=== PATIENT | female | born 1955 | race Caucasian/White ===

== ENCOUNTER 2019-08-08 08:22 | Inpatient (IN) ==
[2019-08-08] MEDS ORDERED: CeFAZolin Syr 2,000MG/20 ML 2,000 MG/20 ML SYRINGE IVPB ONE (08:59)
[2019-08-08] MEDS ORDERED: Ringers Solution, Lactated 1,000 ML IVC SCH ×2 (09:00→09:15)
[2019-08-08] MEDS ORDERED: Ondansetron 4 MG/2 ML VIAL IVP ONE (09:07)
[2019-08-08] MEDS ORDERED: *HR* HYDROmorphone (PF) 1 MG/ML SYRINGE IVP PRN (09:07)
[2019-08-08] MEDS ORDERED: *HR* OxyCODONE Immed Rel 5 MG TABLET PO PRN (09:07)
[2019-08-08] MEDS ORDERED: *HR* Midazolam HCl 2 MG/2 ML VIAL ONE ×2 (09:23→15:47)
[2019-08-08] MEDS ORDERED: *HR* FentaNYL (PF) 100 MCG/2 ML VIAL ONE ×3 (09:23→15:16)
[2019-08-08] MEDS ORDERED: Ondansetron 4 MG/2 ML VIAL ONE (09:23)
[2019-08-08] MEDS ORDERED: *HR* Succinylcholine 200 MG/10 ML VIAL IVP ONE (09:23)
[2019-08-08] MEDS ORDERED: Neostigmine Methylsulfate 3 MG/3 ML SYRINGE ONE (09:23)
[2019-08-08] MEDS ORDERED: Dexamethasone 4 MG/ML VIAL ONE (09:23)
[2019-08-08] MEDS ORDERED: *HR* Rocuronium Bromide 50 MG/5 ML VIAL ONE ×5 (09:23→15:46)
[2019-08-08] MEDS ORDERED: Lidocaine -MPF 2% 2 ML VIAL ONE ×2 (09:23→10:24)
[2019-08-08] MEDS ORDERED: *HR* Propofol 200 MG/20 ML VIAL IVP ONE (09:24)
[2019-08-08] MEDS ORDERED: Lidocaine HCL 4 ML Topical Solution (Laryng-O-Jet Kit Sterile Pak) TP ONE (09:31)
[2019-08-08] MEDS ORDERED: EPHEDrine 50 MG/ML VIAL ONE (10:34)
[2019-08-08] MEDS ORDERED: EPINEPHrine 1 MG/ML VIAL ONE (11:04)
[2019-08-08] MEDS ORDERED: *HR* HYDROMORPHONE 2 MG/ML VIAL ONE (12:13)
[2019-08-08] MEDS: Ondansetron 4 MG/2 ML VIAL IVP PRN (16:13)
[2019-08-08] MEDS: *HR* OxyCODONE/APAP 5/325 TABLET PO PRN ×2 (16:13→20:26)
[2019-08-08] MEDS: 0.9 % Sodium Chloride 1,000 ML IVC SCH (16:13)
[2019-08-08] MEDS: Morphine Sulfate 2 MG/ML SYRINGE IVP PRN (17:51)
[2019-08-08] MEDS ORDERED: *HR* Heparin 5,000 UNIT/ML VIAL SQ SCH (18:00)
[2019-08-08] MEDS: ceFAZolin 2,000 MG in 0.9 % Sodium Chloride 100 ML IVPB SCH (18:08)
[2019-08-08] MEDS: *HR* Heparin 5,000 UNIT/ML VIAL SQ SCH (18:09)
[2019-08-08] MEDS ORDERED: *HR* Promethazine 25 MG/ML VIAL IVP ONE (20:06)
[2019-08-08] MEDS: Topiramate 25 MG TABLET PO SCH (20:26)
[2019-08-09] MEDS: ceFAZolin 2,000 MG in 0.9 % Sodium Chloride 100 ML IVPB SCH (00:30)
[2019-08-09] MEDS: *HR* OxyCODONE/APAP 5/325 TABLET PO PRN ×4 (00:30→16:09)
[2019-08-09] MEDS: *HR* Heparin 5,000 UNIT/ML VIAL SQ SCH ×2 (05:38→17:39)
[2019-08-09] MEDS ORDERED: cefOXitin 1,000 MG, Sodium Chloride IRRigation 1,000 ML IR ONE (06:00)
[2019-08-09] MEDS: 0.9 % Sodium Chloride 1,000 ML IVC SCH ×2 (09:31→20:51)
[2019-08-09] MEDS: Pantoprazole 40 MG VIAL IVP SCH (09:31)
[2019-08-09] MEDS: Topiramate 25 MG TABLET PO SCH ×2 (09:31→20:51)
[2019-08-09 11:09] LABS: Basophils % 0.3 %; Eosinophils % 0.2 %; Hematocrit 38.9 % (35.3-44.9); Immature Granulocytes % 0.3 % (0-4); Lymphocytes # 0.9 K/mcL (0.6-4.6); Lymphocytes % 9.7 %; Mean Corpuscular HGB Conc 30.8 g/dL (31.6-35.5); Mean Corpuscular Hemoglobin 28.6 pg (28.0-33.3); Mean Corpuscular Volume 92.8 fL (83.0-100.0); Monocytes # 0.9 K/mcL (0.0-1.3); Monocytes % 9.2 %; Neutrophils # 7.7 K/mcL (1.6-8.9); Platelet Count 257 K/mcL (140-400); Red Blood Count 4.19 M/mcL (3.82-4.97); Red Cell Distribution Width 14.1 % (11.5-14.5); Segmented Neutrophils % 80.3 %; White Blood Count 9.6 K/mcL (4.3-11.1)
[2019-08-09 11:30] LABS: BUN/Creatinine Ratio 14 (6-26); Blood Urea Nitrogen 10 mg/dL (8-23); Calcium 8.3 mg/dL (8.6-10.3); Carbon Dioxide 26 mEq/L (23-29); Chloride 106 mEq/L (98-107); Glucose 111 mg/dL (70-105); Osmolality,Calculated 290 (280-300); Potassium 3.6 mEq/L (3.5-5.1); Sodium 140 mEq/L (136-145); eGFR For African Americans > 60 (> 60); eGFR For Non-African Americans > 60 (> 60)
[2019-08-09] MEDS: Ondansetron 4 MG/2 ML VIAL IVP PRN (16:10)
[2019-08-09] MEDS: Morphine Sulfate 2 MG/ML SYRINGE IVP PRN (20:51)
[2019-08-10] MEDS: *HR* Heparin 5,000 UNIT/ML VIAL SQ SCH ×2 (04:54→17:51)
[2019-08-10] MEDS: Ondansetron 4 MG/2 ML VIAL IVP PRN ×2 (09:36→18:34)
[2019-08-10] MEDS: Pantoprazole 40 MG VIAL IVP SCH (09:36)
[2019-08-10] MEDS: 0.9 % Sodium Chloride 1,000 ML IVC SCH ×2 (09:37→23:03)
[2019-08-10] MEDS: Topiramate 25 MG TABLET PO SCH ×2 (09:37→19:59)
[2019-08-10] MEDS: *HR* OxyCODONE/APAP 5/325 TABLET PO PRN ×2 (11:19→16:17)
[2019-08-10] MEDS: Morphine Sulfate 2 MG/ML SYRINGE IVP PRN (23:18)
[2019-08-11] MEDS: Morphine Sulfate 2 MG/ML SYRINGE IVP PRN (04:40)
[2019-08-11] MEDS: *HR* Heparin 5,000 UNIT/ML VIAL SQ SCH (05:48)
[2019-08-11] MEDS ORDERED: Ibuprofen 800 MG TABLET PO ONE (07:50)
[2019-08-11] MEDS ORDERED: Ondansetron ODT 4 MG TAB.RAPDIS SL PRN (07:53)
[2019-08-11] MEDS: Topiramate 25 MG TABLET PO SCH (08:47)
[2019-08-11 10:19] VITALS: BP 104/68
[2019-08-11] MEDS ORDERED: Simethicone 80 MG TAB.CHEW PO PRN (10:42)
== END 2019-08-11 14:29 | disposition home or self-care (01) | DRG 328 ==
LOC: SAMDAY 08:22 → 3ANU 13:50
PROVIDERS: ADMIT Surgery; ATTEND Surgery